=== PATIENT | male | born 1990 | race Caucasian/White ===

== ENCOUNTER 2019-01-25 15:13 | Emergency (ER) | payer MEDICAID, OTHER ==
[~2019-01-25] VITALS: Ht 190.5 cm; Wt 88.5 kg
[2019-01-25 15:31] VITALS: BP 110/62
[2019-01-25] MEDS ORDERED: IBUPROFEN 800 MG TAB PO ONE (16:45)
[2019-01-25] MEDS ORDERED: cefTRIAXone SOD 1,000 MG VL IM ONE (16:45)
== END 2019-01-25 17:20 | disposition home or self-care (01) ==
LOC: ER 15:21
DX: H66.92 Otitis media, unspecified, left ear (principal); J03.90 Acute tonsillitis, unspecified; Z88.1 Allergy status to other antibiotic agents
CPT/HCPCS: 96372; 99283; J0696